=== PATIENT | male | born 1980 ===

== ENCOUNTER → 2020-01-15 | Outpatient (CLI) | payer OTHER ==
[2020-01-15 08:35] LABS: SPERM MORPHOLOGY SENT TO REFERENC LAB
[2020-01-15 09:09] LABS: SPERM CONCENTRATION 25.7 X10^6/mL (>12.0); SPERM PROGRESSION 3; TOTAL SPERM COUNT 110.5 X10^6 (>33.0)
== END ==
LOC: LAB 08:26
PROVIDERS: ATTEND Urology
DX: N46.9 Male infertility, unspecified (principal)
CPT/HCPCS: 89320